=== PATIENT | female | born 1945 | race Caucasian/White ===

== ENCOUNTER 2016-12-09 14:08 | Emergency (ER) | payer OTHER, MEDICARE ==
[~2016-12-09] VITALS: Ht 170.2 cm; Wt 66.3 kg
[2016-12-09 15:00] VITALS: BP 132/60
[2016-12-09 19:17] VITALS: BP 126/61
== END 2016-12-09 19:47 | disposition home or self-care (01) ==
LOC: EME 14:08 → 2EAST 14:29
DX: T18.128A Food in esophagus causing other injury, initial encounter (principal); X58.XXXA Exposure to other specified factors, initial encounter; K44.9 Diaphragmatic hernia without obstruction or gangrene; E78.5 Hyperlipidemia, unspecified; E03.9 Hypothyroidism, unspecified; Z79.82 Long term (current) use of aspirin; Z72.0 Tobacco use
CPT/HCPCS: 88305; G0378; J0330; J1100; J2405; J3010